=== PATIENT | female | born 1940 | race Caucasian/White ===

== ENCOUNTER 2017-12-22 11:29 | Outpatient (CLI) | payer MEDICARE, BC | END 2017-12-22 11:30 | disposition home or self-care (01) | DRG 556 | LOC: CONVCARE 11:29 | PROVIDERS: ATTEND Orthopaedic Surgery | DX: M25.511 Pain in right shoulder (principal); M19.012 Primary osteoarthritis, left shoulder; M19.211 Secondary osteoarthritis, right shoulder; M75.121 Complete rotator cuff tear or rupture of right shoulder, not specified as traumatic; M62.511 Muscle wasting and atrophy, not elsewhere classified, right shoulder; Z96.651 Presence of right artificial knee joint; Z96.652 Presence of left artificial knee joint; Z86.14 Personal history of Methicillin resistant Staphylococcus aureus infection | CPT/HCPCS: 73030 ==

== ENCOUNTER 2018-08-31 10:55 | Outpatient (CLI) | payer MEDICARE, BC | END 2018-08-31 10:56 | disposition home or self-care (01) | DRG 556 | LOC: CONVCARE 10:55 | PROVIDERS: ATTEND Orthopaedic Surgery | DX: M25.512 Pain in left shoulder (principal) | CPT/HCPCS: 73030 ==

== ENCOUNTER 2018-10-17 13:55 | Inpatient (IN) | payer MEDICARE, BC ==
[2018-10-17] MEDS ORDERED: MAGNESIUM HYDROXIDE 30 ML SUS PO PRN (14:14)
[2018-10-17] MEDS ORDERED: [UNRECOGNIZED DRUG - OTHER] PO PRN (14:14)
[2018-10-17] MEDS ORDERED: ONDANSETRON 4 MG ODT PO PRN (14:14)
[2018-10-17] MEDS ORDERED: ZOLPIDEM TARTRATE 5 MG TAB PO PRN (14:14)
[2018-10-17] MEDS ORDERED: SENNOSIDES PO PRN (14:14)
[2018-10-17] MEDS ORDERED: DOCUSATE SODIUM PO PRN (14:14)
[2018-10-17] MEDS ORDERED: ALUMINUM/MAGNESIUM 30 ML SUS PO PRN (14:14)
[2018-10-17] MEDS ORDERED: SENNOSIDES A AND B 8.6 MG TAB PO PRN (14:41)
[2018-10-17] MEDS ORDERED: DOCUSATE SODIUM 100 MG SGL PO PRN (14:42)
[2018-10-17] MEDS ORDERED: DIPHENHYDRAMINE 25 MG CAP PO PRN (15:40)
[2018-10-17] MEDS: ACETAMINOPHEN 325 MG PO PRN (15:48)
[2018-10-17] MEDS ORDERED: LOVASTATIN 20 MG TABLET ONE (20:47)
[2018-10-17] MEDS: OXYBUTYNIN CHLORIDE 5 MG TAB PO SCH (21:02)
[2018-10-17] MEDS: SUCRALFATE 1 GM TAB PO SCH ×2 (21:02→21:51)
[2018-10-17] MEDS: GABAPENTIN 300 MG CAP PO SCH (21:02)
[2018-10-17] MEDS: LOVASTATIN 10 MG TAB PO SCH (21:02)
[2018-10-17] MEDS: FERROUS GLUCONATE 324 MG TABLET PO SCH (21:02)
[2018-10-17] MEDS: TRAMADOL HYDROCHLORIDE 50 MG TAB PO PRN (21:11)
[2018-10-18] MEDS: ACETAMINOPHEN 325 MG PO PRN ×3 (01:45→16:35)
[2018-10-18] MEDS: LEVOTHYROXINE SODIUM 50 MCG TAB PO SCH (06:42)
[2018-10-18] MEDS ORDERED: OMEPRAZOLE 40 MG ECC PO SCH (09:00)
[2018-10-18] MEDS: SERTRALINE HYDROCHLORIDE 50 MG TAB PO SCH (10:01)
[2018-10-18] MEDS: POTASSIUM CHLORIDE 10 MEQ TER PO SCH (10:01)
[2018-10-18] MEDS: OXYBUTYNIN CHLORIDE 5 MG TAB PO SCH ×2 (10:01→20:17)
[2018-10-18] MEDS: GABAPENTIN 300 MG CAP PO SCH ×2 (10:01→20:17)
[2018-10-18] MEDS: FERROUS GLUCONATE 324 MG TABLET PO SCH ×2 (10:01→20:17)
[2018-10-18] MEDS: SUCRALFATE 1 GM TAB PO SCH ×4 (10:02→20:17)
[2018-10-18] MEDS: PANTOPRAZOLE SODIUM 40 MG ECT PO SCH (10:02)
[2018-10-18] MEDS: LISINOPRIL 5 MG TAB PO SCH (10:43)
[2018-10-18] MEDS: LOVASTATIN 10 MG TAB PO SCH (20:18)
[2018-10-18] MEDS: TRAMADOL HYDROCHLORIDE 50 MG TAB PO PRN (22:18)
[2018-10-19] MEDS: SUCRALFATE 1 GM TAB PO SCH ×5 (06:03→21:10)
[2018-10-19] MEDS: LEVOTHYROXINE SODIUM 50 MCG TAB PO SCH (06:03)
[2018-10-19] MEDS: TRAMADOL HYDROCHLORIDE 50 MG TAB PO PRN ×2 (06:03→21:12)
[2018-10-19] MEDS: OXYBUTYNIN CHLORIDE 5 MG TAB PO SCH ×2 (08:26→21:09)
[2018-10-19] MEDS: LISINOPRIL 5 MG TAB PO SCH (08:27)
[2018-10-19] MEDS: SERTRALINE HYDROCHLORIDE 50 MG TAB PO SCH (08:27)
[2018-10-19] MEDS: GABAPENTIN 300 MG CAP PO SCH ×2 (08:27→21:10)
[2018-10-19] MEDS: FERROUS GLUCONATE 324 MG TABLET PO SCH ×2 (08:27→21:09)
[2018-10-19] MEDS: PANTOPRAZOLE SODIUM 40 MG ECT PO SCH (08:27)
[2018-10-19] MEDS: POTASSIUM CHLORIDE 10 MEQ TER PO SCH (08:27)
[2018-10-19 09:26] VITALS: RESP 18
[2018-10-19] MEDS: ACETAMINOPHEN 325 MG PO PRN (12:58)
[2018-10-19] MEDS: LOVASTATIN 10 MG TAB PO SCH (21:04)
[2018-10-20] MEDS: ACETAMINOPHEN 325 MG PO PRN ×2 (06:03→14:17)
[2018-10-20] MEDS: LEVOTHYROXINE SODIUM 50 MCG TAB PO SCH (06:05)
[2018-10-20] MEDS: SUCRALFATE 1 GM TAB PO SCH ×4 (08:04→20:22)
[2018-10-20] MEDS: OXYBUTYNIN CHLORIDE 5 MG TAB PO SCH ×2 (08:05→20:22)
[2018-10-20] MEDS: GABAPENTIN 300 MG CAP PO SCH ×2 (08:06→20:23)
[2018-10-20] MEDS: SERTRALINE HYDROCHLORIDE 50 MG TAB PO SCH (08:06)
[2018-10-20] MEDS: POTASSIUM CHLORIDE 10 MEQ TER PO SCH (08:06)
[2018-10-20] MEDS: FERROUS GLUCONATE 324 MG TABLET PO SCH ×2 (08:07→20:22)
[2018-10-20] MEDS: PANTOPRAZOLE SODIUM 40 MG ECT PO SCH (08:07)
[2018-10-20] MEDS: LISINOPRIL 5 MG TAB PO SCH (08:08)
[2018-10-20] MEDS: LOVASTATIN 20 MG TABLET PO SCH (20:23)
[2018-10-20] MEDS: TRAMADOL HYDROCHLORIDE 50 MG TAB PO PRN (20:28)
[2018-10-21] MEDS: TRAMADOL HYDROCHLORIDE 50 MG TAB PO PRN ×2 (03:30→19:43)
[2018-10-21] MEDS: SUCRALFATE 1 GM TAB PO SCH ×4 (06:56→20:50)
[2018-10-21] MEDS: LEVOTHYROXINE SODIUM 50 MCG TAB PO SCH (07:35)
[2018-10-21 08:52] VITALS: O2SAT 96
[2018-10-21] MEDS: FERROUS GLUCONATE 324 MG TABLET PO SCH ×2 (08:54→20:50)
[2018-10-21] MEDS: OXYBUTYNIN CHLORIDE 5 MG TAB PO SCH ×2 (08:54→20:50)
[2018-10-21] MEDS: POTASSIUM CHLORIDE 10 MEQ TER PO SCH (08:54)
[2018-10-21] MEDS: GABAPENTIN 300 MG CAP PO SCH ×2 (08:55→20:50)
[2018-10-21] MEDS: LISINOPRIL 5 MG TAB PO SCH (08:55)
[2018-10-21] MEDS: PANTOPRAZOLE SODIUM 40 MG ECT PO SCH (08:55)
[2018-10-21] MEDS: SERTRALINE HYDROCHLORIDE 50 MG TAB PO SCH (08:55)
[2018-10-21] MEDS: LOVASTATIN 20 MG TABLET PO SCH (20:51)
[2018-10-22] MEDS: LEVOTHYROXINE SODIUM 50 MCG TAB PO SCH (06:13)
[2018-10-22] MEDS: SUCRALFATE 1 GM TAB PO SCH ×2 (07:33→11:32)
[2018-10-22] MEDS: PANTOPRAZOLE SODIUM 40 MG ECT PO SCH (09:52)
[2018-10-22] MEDS: LISINOPRIL 5 MG TAB PO SCH (09:52)
[2018-10-22] MEDS: SERTRALINE HYDROCHLORIDE 50 MG TAB PO SCH (09:52)
[2018-10-22] MEDS: OXYBUTYNIN CHLORIDE 5 MG TAB PO SCH (09:52)
[2018-10-22] MEDS: GABAPENTIN 300 MG CAP PO SCH (09:52)
[2018-10-22] MEDS: POTASSIUM CHLORIDE 10 MEQ TER PO SCH (09:52)
[2018-10-22] MEDS: FERROUS GLUCONATE 324 MG TABLET PO SCH (09:53)
[2018-10-22 10:09] VITALS: BP 104/66; PULSE 72; TEMP 98
== END 2018-10-22 13:40 | disposition home or self-care (01) | DRG 554 ==
LOC: ACUTE CARE 13:55
PROVIDERS: ADMIT Emergency Medicine; ATTEND Emergency Medicine
PROC: F01ZBZZ Bed Mobility Assessment (ICD-10-PCS; principal; 2018-10-17)
PROC: F01ZCFZ Transfer Assessment using Assistive, Adaptive, Supportive or Protective Equipment (ICD-10-PCS; 2018-10-17)
PROC: F01K5YZ Range of Motion and Joint Integrity Assessment of Musculoskeletal System - Upper Back / Upper Extremity using Other Equipment (ICD-10-PCS; 2018-10-19)
PROC: F02Z3ZZ Grooming/Personal Hygiene Assessment (ICD-10-PCS; 2018-10-19)
DX: M19.90 Unspecified osteoarthritis, unspecified site (principal); I10 Essential (primary) hypertension; Z96.612 Presence of left artificial shoulder joint; N32.81 Overactive bladder; E03.9 Hypothyroidism, unspecified; Z22.322 Carrier or suspected carrier of Methicillin resistant Staphylococcus aureus
CPT/HCPCS: 94664; A6219; A6232; A6402; A9270-GY

== ENCOUNTER 2018-10-26 11:57 | Outpatient (CLI) | payer MEDICARE, BC | END 2018-10-26 11:58 | disposition home or self-care (01) | DRG 951 | LOC: CONVCARE 11:57 | PROVIDERS: ATTEND Orthopaedic Surgery | DX: Z98.890 Other specified postprocedural states (principal) | CPT/HCPCS: 73030 ==